=== PATIENT | female | born 1960 | race Caucasian/White ===

== ENCOUNTER 2019-04-22 11:17 | Outpatient (CLI) | payer OTHER | END 2019-04-22 15:03 | disposition home or self-care (01) | LOC: RAD 11:17 | DX: M16.0 Bilateral primary osteoarthritis of hip (principal); M54.5 Low back pain ==

== ENCOUNTER 2021-07-12 08:04 | Outpatient (CLI) | payer OTHER | END 2021-07-12 08:20 | disposition home or self-care (01) | LOC: MRI 08:04 | PROVIDERS: ATTEND Physical Medicine & Rehabilitation | DX: G83.11 Monoplegia of lower limb affecting right dominant side (principal) | CPT/HCPCS: 70551; 72141; 72146; 72148 ==